=== PATIENT | male | born 1980 | race Caucasian/White ===

== ENCOUNTER 2016-12-23 17:10 | Emergency (ER) | payer OTHER ==
--- NOTE | 2016-12-23 17:23 | EDPHY ---
H & P Stated Complaint: fever/night sweats shakes for 3 weeks Time Seen by Provider: 12/23/16 17:22 HPI/ROS: CHIEF COMPLAINT: Nausea, fever, night sweats HISTORY OF PRESENT ILLNESS: The patient is a diabetic 36 y/o male complaining of nausea, fever, headache, chills, and night sweats for the past 3 weeks. He has not had neck stiffness. 3 weeks ago he had similar symptoms and thought it was the flu, since someone at work had the flu. He has been more lethargic since his symptoms began; his notes that he has been sleeping constantly, waking up drenched in sweat. He was subjectively febrile at 101 several days ago. This was the first time he measured a fever. His also notes that he has intermittently looked jaundiced or a weber/blue color. He is a type 2 diabetic on metformin. His blood glucose levels normally run in the 80's. Denies taking anything for his fever today, he tried Tylenol several days ago with no relief. Denies a flu shot this year, recent travel, cough, shortness of breath, chest pain, sore throat, vomiting, diarrhea, or abdominal pain. He is in the and believes that he has had a meningitis vaccine. REVIEW OF SYSTEMS: A ten point review of systems was performed and is negative with the exception of the items mentioned in the HPI. Past medical history: Type 2 diabetes Past surgical history: Labral reconstruction Family history: Noncontributory Social history: , daughter, and son at bedside Lives in [place] Works as a machinist mate for the [employer] General Appearance: Alert. Vital signs reviewed. Eyes: Pupils equal and round, no conjunctival injection, no discharge. Anicteric. ENT, Mouth: Mucous membranes are moist, no oropharyngeal erythema or edema. Neck: No lymphadenopathy, supple. No meningeal signs. Respiratory: Lungs are clear to auscultation; no wheezes, rales, or rhonchi. Cardiovascular: Regular rate and rhythm; no murmur, rub, or gallop. Gastrointestinal: Abdomen is soft and nontender, no masses or organomegaly, bowel sounds normal. Skin: Warm and dry. Left posterior lateral thigh rash, slightly raised, erythematous, dry. Back: Nontender to palpation over the thoracolumbar spine. No CVAT. Extremities: No lower extremity edema, no calf tenderness or swelling. Neurological: Alert and oriented. Moving all four extremities easily and equally. Psychiatric: Normal affect. - Personal History Current Tetanus/Diphtheria Vaccine: Yes - Medical/Surgical History Hx Asthma: No Hx Chronic Respiratory Disease: No Hx Diabetes: No Hx Cardiac Disease: No Hx Renal Disease: No Hx Cirrhosis: No Hx Alcoholism: No Hx HIV/AIDS: No Hx Splenectomy or Spleen Trauma: No Other PMH: denies - Social History Smoking Status: Never smoked Constitutional: Initial Vital Signs Temperature (C) 37.5 C 12/23/16 17:18 Heart Rate 83 12/23/16 17:18 Respiratory Rate 20 12/23/16 17:18 Blood Pressure 103/63 12/23/16 17:18 O2 Sat (%) 97 12/23/16 17:18 O2 Delivery Mode Room Air Allergies/Adverse Reactions: BANDAIDS Allergy (Uncoded 12/23/16 17:17) CHLORAPREP Allergy (Uncoded 12/23/16 17:17) HAYFEVER Allergy (Uncoded 12/23/16 17:17) Home Medications: Medication Instructions Recorded NO HOME MEDS 03/08/10 Metformin HCl 12/23/16 Medical Decision Making ED Course/Re-evaluation: The patient is a diabetic 36 y/o male complaining of fever, headache, and night sweats for the past 3 weeks. On exam he has a left posterior lateral thigh rash that is slightly raised, erythematous, and dry. This is not new. Patients laboratory results, CBC and chemistries, are normal. Influenza test is negative. 1839: Reassessed patient and discussed laboratory findings. Etiology of her symptoms is unclear at this point. He does not have influenza but has symptoms suggestive of a viral syndrome. The chronicity of this illness is concerning. He has been able to work for the past few weeks but began feeling worse 2-3 days ago. There is nothing to suggest hyperglycemia or ketoacidosis. I do not think that he has a meningitis although we discussed the possibility of a viral meningitis. We also discussed a lumbar puncture. He has a normal neurologic exam and no meningeal signs. He is not febrile here. I do not recommend lumbar puncture at this time. He has not had any exotic travel. No recent bites. Return precautions provided; patient is comfortable with this plan. Differential Diagnosis: Fever in adults including but not limited to pneumonia, urinary tract infection , viral syndrome, and influenza. - Data Points Laboratory Results: Laboratory Results 12/23/16 17:30 12/23/16 17:30 12/23/16 12/23/16 12/23/16 17:50 17:30 17:30 WBC 10.25 10^3/uL H 10^3/uL (3.80-9.50) RBC 4.71 10^6/uL 10^6/uL (4.40-6.38) Hgb 14.7 g/dL g/dL (13.7-17.5) Hct 42.5 % % (40.0-51.0) MCV 90.2 fL fL (81.5-99.8) MCH 31.2 pg pg (27.9-34.1) MCHC 34.6 g/dL g/dL (32.4-36.7) RDW 13.9 % % (11.5-15.2) Plt Count 327 10^3/uL 10^3/uL (150-400) MPV 9.3 fL fL (8.7-11.7) Neut % (Auto) 70.5 % % (39.3-74.2) Lymph % (Auto) 18.0 % % (15.0-45.0) [place] % (Auto) 9.4 % % (4.5-13.0) Eos % (Auto) 0.8 % % (0.6-7.6) Baso % (Auto) 0.7 % % (0.3-1.7) Nucleat RBC Rel Count 0.0 % % (0.0-0.2) Absolute Neuts (auto) 7.24 10^3/uL H 10^3/uL (1.70-6.50) Absolute Lymphs (auto) 1.84 10^3/uL 10^3/uL (1.00-3.00) Absolute Monos (auto) 0.96 10^3/uL H 10^3/uL (0.30-0.80) Absolute Eos (auto) 0.08 10^3/uL 10^3/uL (0.03-0.40) Absolute Basos (auto) 0.07 10^3/uL 10^3/uL (0.02-0.10) Absolute Nucleated RBC 0.00 10^3/uL 10^3/uL (0-0.01) Immature Gran % 0.6 % % (0.0-1.1) Immature Gran # 0.06 10^3/uL 10^3/uL (0.00-0.10) Sodium 138 mEq/L mEq/L (134-144) Potassium 4.3 mEq/L mEq/L (3.5-5.2) Chloride 100 mEq/L mEq/L (97-110) Carbon Dioxide 25 mEq/l mEq/l (22-31) Anion Gap 13 mEq/L mEq/L (8-16) BUN 14 mg/dL mg/dL (7-23) Creatinine 1.0 mg/dL mg/dL (0.7-1.3) Estimated GFR > 60 Glucose 80 mg/dL mg/dL (70-100) Calcium 9.6 mg/dL mg/dL (8.5-10.4) Nasal Influenza A PCR NEGATIVE FOR FLU A (NEGATIVE) Nasal Influenza B PCR NEGATIVE FOR FLU B (NEGATIVE) Departure - Departure Disposition: Home, Routine, Self-Care Clinical Impression: Viral syndrome Condition: Good Instructions: Viral Syndrome (ED) Additional Instructions: Adult Pain & Fever Control: We recommend Acetaminophen (Tylenol) and Ibuprofen (Motrin,Advil) for pain and fever control. When fever is high or pain severe, both drugs can be used at the same time, but at different intervals. Please note the time differences. Your dose is: Acetaminophen [650]mg every 4 to 6 hours Ibuprofen [400]mg every [4-6] hours with food Note: No more than 3000mg of Acetaminophen should be taken in 24 hours (for an adult). Use ibuprofen and Tylenol as needed for fever and body aches. Follow up with your primary care physician within 72 hours for reevaluation. Drink plenty of fluids. Return to the emergency department immediately for high fever, severe headache or neck pain, difficulty breathing, abdominal pain, or other worsening of condition. Referrals: Kayode Ballard MD [Primary Care Provider] - As per Instructions Report Scribed for: Shanna Arzate Report Scribed by: Raquel Michaud Date of Report: 12/23/16 Time of Report: 17:29 Physician Review and Approval Statement: 12/23/16 17:23 Portions of this note were transcribed by the medical i d sales. I, Dr. Shanna Arzate, personally performed the history, physical exam, and medical decision- making; and confirmed the accuracy of the information in the transcribed note.
[2016-12-23 17:55] LABS: % IMMATURE GRANULYOCYTES 0.6 % (0.0-1.1); ABSOLUTE IMMATURE GRANULOCYTES 0.06 10^3/uL (0.00-0.10); ADD DIFF? NO; ADD MORPH? NO; ADD SCAN? NO; ATYPICAL LYMPHOCYTE FLAG 0 (0-99); FRAGMENT RBC FLAG 0 (0-99); HEMATOCRIT 42.5 % (40.0-51.0); HEMOGLOBIN 14.7 g/dL (13.7-17.5); LEFT SHIFT FLG 0 (0-99); LIPEMIA HEMOLYSIS FLAG 90 (0-99); MEAN CELL HEMOGLOBIN 31.2 pg (27.9-34.1); MEAN CELL HEMOGLOBIN CONCENTR. 34.6 g/dL (32.4-36.7); MEAN CELL VOLUME 90.2 fL (81.5-99.8); MEAN PLATELET VOLUME 9.3 fL (8.7-11.7); PLATELET CLUMPS FLAG 0 (0-99); PLATELET COUNT 327 10^3/uL (150-400); RED BLOOD CELL COUNT 4.71 10^6/uL (4.40-6.38); RED CELL DISTRIBUTION WIDTH 13.9 % (11.5-15.2)
[2016-12-23 18:01] LABS: ANION GAP 13 mEq/L (8-16); CALCIUM 9.6 mg/dL (8.5-10.4); CARBON DIOXIDE 25 mEq/l (22-31); CHLORIDE 100 mEq/L (97-110); GLOMERULAR FILTRATION RATE > 60; GLUCOSE 80 mg/dL (70-100); POTASSIUM 4.3 mEq/L (3.5-5.2); SODIUM 138 mEq/L (134-144)
[2016-12-23] MEDS ORDERED: ACETAMINOPHEN 500 MG TAB PO ONE (19:25)
[2016-12-23 19:32] VITALS: BP 111/75; PULSE 88; RESP 18; TEMP 101.7; O2SAT 96
== END 2016-12-23 19:36 | disposition home or self-care (01) ==
DX: B34.9 Viral infection, unspecified (principal); E11.9 Type 2 diabetes mellitus without complications; Z79.84 Long term (current) use of oral hypoglycemic drugs

== ENCOUNTER 2017-02-04 17:20 | Emergency (ER) | payer OTHER ==
[2017-02-04 17:34] VITALS: O2SAT 97
--- NOTE | 2017-02-04 19:40 | EDPHY ---
HPI/HX/ROS/PE/MDM Narrative: CHIEF COMPLAINT: Left-sided back pain HPI: This patient is a 36 year old male with history of type II diabetes and kidney stones complaining of lower back and left hip pain onset yesterday afternoon. He denies any recent trauma. He describes the pain as a burning sensation. He was unable to sleep well last night, and has difficulty finding a comfortable position. His pain was initially left-sided, but is now radiating towards the right. He endorses some urinary urgency. He denies fever, hematuria, vomiting, or other associated symptoms. REVIEW OF SYSTEMS: Aside from elements discussed in the HPI, a comprehensive 10-point review of systems was reviewed and is negative. PMH: Type II diabetes (Metformin BID). Kidney stones. SOCIAL HISTORY: . Lives in [place]. Employed. PHYSICAL EXAM: General:Patient is alert, in no acute distress. ENT:Eyes are normal to inspection. ENT inspection normal. Neck: Normal inspection. Full range of motion. Respiratory:No respiratory distress. Breath sounds normal bilaterally. Cardiovascular: Regular rate and rhythm. Strong peripheral pulses. Normal cap refill. Abdomen:The abdomen is nontender to palpation. There are no peritoneal signs. There are normal bowel sounds. Back: Normal to inspection. No tenderness to palpation. Skin: Normal color. No rash. Warm and dry. Extremities: Normal appearance. Full range of motion. Neuro: Oriented x3. Normal motor function. Normal sensory function. ED Course: 36 y/o male with history of kidney stones presents with left-sided burning pain in his lower back and hip area. Plan for CT abdomen/pelvis to rule out kidney stone. Plan to administer 30mg IV Toradol for pain relief. Reviewed laboratory studies. UA positive for UTI. Labs otherwise unremarkable. 20:[address] Gill, radiologist. CT shows multiple kidney stones, none obstructing. 20:32 Reassessed patent. Discussed lab and CT results. Plan to discharge home in good condition with prescription for Keflex. Plan to administer first dose here in the emergency department. Follow up and return precautions discussed. The patient is comfortable with this plan. Administered 500mg PO Keflex. MDM: This patient presents with flank pain and some abnormal urinary symptoms. His CT is negative for active stone or lumbar pathology. His UA suggests UTI which would represent a recurrent infection for him. I discussed the fact that it is unusual for healthy males to develop UTIS. His states she believes it is because the patient eats undercooked chicken. I strongly recommended they follow-up with a urologist JEFERSON for further workup. I will treat with Keflex. - Data Points Imaging Results: Imaging Impressions Abdomen/Pelvis CT 02/04/17 19:41 Impression: 1. 3 new nonobstructive left upper pole nephroliths. May be associated with an enlarged peripelvic cyst vs infundibular stenosis. A CT urogram would be definitive. 2. Possible constipation. 3. Unremarkable lumbar spine. Results discussed with Dr. Hernandez at 8:23 PM. Attention: This CT examination is specifically designed to evaluate patients who are clinically suspected of having acute obstructive uropathy. This examination does not use radiographic contrast, and as such, provides only a limited evaluation of the abdomen, pelvis and retroperitoneum. If there is further clinical suspicion for pathological conditions other than obstructive uropathy, a complete CT evaluation of the abdomen and pelvis utilizing intravenous, oral, and rectal contrast should be considered. General information for patients regarding this examination can be found at [email or web address]. If you have questions or comments about this report, please contact me at [phone] (hospital) or [phone] (cell). Imaging: Discussed imaging studies w/ inbound call center representative Radiologist Laboratory Results: Laboratory Results 02/04/17 19:55 02/04/17 19:55 02/04/17 02/04/17 02/04/17 19:55 19:55 18:30 WBC 8.36 10^3/uL 10^3/uL (3.80-9.50) RBC 4.65 10^6/uL 10^6/uL (4.40-6.38) Hgb 14.3 g/dL g/dL (13.7-17.5) Hct 41.6 % % (40.0-51.0) MCV 89.5 fL fL (81.5-99.8) MCH 30.8 pg pg (27.9-34.1) MCHC 34.4 g/dL g/dL (32.4-36.7) RDW 13.9 % % (11.5-15.2) Plt Count 256 10^3/uL 10^3/uL (150-400) MPV 9.9 fL fL (8.7-11.7) Neut % (Auto) 69.1 % % (39.3-74.2) Lymph % (Auto) 20.2 % % (15.0-45.0) [place] % (Auto) 8.7 % % (4.5-13.0) Eos % (Auto) 1.0 % % (0.6-7.6) Baso % (Auto) 0.6 % % (0.3-1.7) Nucleat RBC Rel Count 0.0 % % (0.0-0.2) Absolute Neuts (auto) 5.78 10^3/uL 10^3/uL (1.70-6.50) Absolute Lymphs (auto) 1.69 10^3/uL 10^3/uL (1.00-3.00) Absolute Monos (auto) 0.73 10^3/uL 10^3/uL (0.30-0.80) Absolute Eos (auto) 0.08 10^3/uL 10^3/uL (0.03-0.40) Absolute Basos (auto) 0.05 10^3/uL 10^3/uL (0.02-0.10) Absolute Nucleated RBC 0.00 10^3/uL 10^3/uL (0-0.01) Immature Gran % 0.4 % % (0.0-1.1) Immature Gran # 0.03 10^3/uL 10^3/uL (0.00-0.10) Sodium 137 mEq/L mEq/L (134-144) Potassium 4.0 mEq/L mEq/L (3.5-5.2) Chloride 103 mEq/L mEq/L (97-110) Carbon Dioxide 22 mEq/l mEq/l (22-31) Anion Gap 12 mEq/L mEq/L (8-16) BUN 13 mg/dL mg/dL (7-23) Creatinine 0.9 mg/dL mg/dL (0.7-1.3) Estimated GFR > 60 Glucose 101 mg/dL H mg/dL (70-100) Calcium 9.6 mg/dL mg/dL (8.5-10.4) Urine Color YELLOW Urine Appearance CLEAR Urine pH 7.0 (5.0-7.5) Ur Specific [place] 1.011 (1.002-1.030) Urine Protein NEGATIVE (NEGATIVE) Urine Ketones NEGATIVE (NEGATIVE) Urine Blood NEGATIVE (NEGATIVE) Urine Nitrate NEGATIVE (NEGATIVE) Urine Bilirubin NEGATIVE (NEGATIVE) Urine Urobilinogen NEGATIVE EU EU (0.2-1.0) Ur Leukocyte Esterase TRACE H (NEGATIVE) Urine RBC 3-5 /hpf H /hpf (0-3) Urine WBC 5-10 /hpf H /hpf (0-3) Ur Epithelial Cells TRACE /lpf /lpf (NONE-1+) Urine Bacteria 4+ /hpf H /hpf (NONE SEEN) Urine Glucose NEGATIVE (NEGATIVE) Medications Given: Discontinued Medications Sodium Chloride (Ns) 1,000 mls @ 0 mls/hr IV EDNOW ONE; Wide Open PRN Reason: Protocol Stop: 02/04/17 19:42 Last Admin: 02/04/17 19:59 Dose: 1,000 mls Ketorolac Tromethamine (Toradol) 30 mg IVP EDNOW ONE Stop: 02/04/17 19:42 Last Admin: 02/04/17 19:59 Dose: 30 mg General Time Seen by Provider: 02/04/17 19:15 Initial Vital Signs: Initial Vital Signs Temperature (C) 37.6 C 02/04/17 17:31 Heart Rate 101 H 02/04/17 17:31 Respiratory Rate 16 02/04/17 17:31 Blood Pressure 114/71 02/04/17 17:31 O2 Sat (%) 97 02/04/17 17:31 O2 Delivery Mode Room Air Allergies/Adverse Reactions: BANDAIDS Allergy (Uncoded 12/23/16 17:17) CHLORAPREP Allergy (Uncoded 12/23/16 17:17) HAYFEVER Allergy (Uncoded 12/23/16 17:17) Home Medications: Medication Instructions Recorded Metformin HCl 12/23/16 Cephalexin [Keflex] 500 mg PO TID #21 cap 02/04/17 Departure - Departure Disposition: Home, Routine, Self-Care Clinical Impression: UTI (urinary tract infection) Condition: Good Instructions: Cephalexin (By mouth), Urinary Tract Infection in Men (ED) Additional Instructions: Take Keflex as prescribed. It is important to finish your entire course of antibiotics even if you are feeling better. Follow-up with your primary doctor in 2-3 days. Follow up with urology this week. We have provided a referral to our urologist metal control worker. Return to the Emergency Department for fever, worsening pain, flank pain or failure to improve within 72 hours. It is possible that the bacteria causing your infection is resistant to the antibiotic we've placed you on. We have sent a urine for culture, if this comes back with a resistant bacteria, we will call you at the number you provided to us. Referrals: Kayode Ballard MD [Primary Care Provider] - As per Instructions Herbert Redmond MD [Medical Doctor] - As per Instructions Prescriptions: Cephalexin [Keflex] 500 mg PO TID #21 cap Report Scribed for: Memo Hernandez Report Scribed by: Lizette George Date of Report: 02/04/17 Time of Report: 19:41 Physician Review and Approval Statement: Portions of this note were transcribed by an ED scribe. I personally performed the history, physical exam, and medical decision making; and confirm the accuracy of the information in the transcribed note.
[2017-02-04] MEDS ORDERED: NS 1,000 ML IV ONE (19:41)
[2017-02-04] MEDS ORDERED: KETOROLAC 30 MG/1 ML SDV IVP ONE (19:41)
[2017-02-04 19:58] LABS: COLOR YELLOW; LEUKOCYTE ESTERASE,URINE TRACE (NEGATIVE); NITRITE,URINE NEGATIVE (NEGATIVE)
[2017-02-04 20:16] LABS: BACTERIA 4+ /hpf (NONE SEEN)
[2017-02-04 20:21] LABS: % IMMATURE GRANULYOCYTES 0.4 % (0.0-1.1); ABSOLUTE IMMATURE GRANULOCYTES 0.03 10^3/uL (0.00-0.10); ADD DIFF? NO; ADD MORPH? NO; ADD SCAN? NO; ATYPICAL LYMPHOCYTE FLAG 10 (0-99); FRAGMENT RBC FLAG 0 (0-99); HEMATOCRIT 41.6 % (40.0-51.0); HEMOGLOBIN 14.3 g/dL (13.7-17.5); LEFT SHIFT FLG 0 (0-99); LIPEMIA HEMOLYSIS FLAG 90 (0-99); MEAN CELL HEMOGLOBIN 30.8 pg (27.9-34.1); MEAN CELL HEMOGLOBIN CONCENTR. 34.4 g/dL (32.4-36.7); MEAN CELL VOLUME 89.5 fL (81.5-99.8); MEAN PLATELET VOLUME 9.9 fL (8.7-11.7); PLATELET CLUMPS FLAG 0 (0-99); PLATELET COUNT 256 10^3/uL (150-400); RED BLOOD CELL COUNT 4.65 10^6/uL (4.40-6.38); RED CELL DISTRIBUTION WIDTH 13.9 % (11.5-15.2)
[2017-02-04 20:26] VITALS: BP 111/73; PULSE 87; RESP 18
[2017-02-04 20:30] LABS: ANION GAP 12 mEq/L (8-16); CALCIUM 9.6 mg/dL (8.5-10.4); CARBON DIOXIDE 22 mEq/l (22-31); CHLORIDE 103 mEq/L (97-110); CREATININE 0.9 mg/dL (0.7-1.3); GLOMERULAR FILTRATION RATE > 60; GLUCOSE 101 mg/dL (70-100); SODIUM 137 mEq/L (134-144)
[2017-02-04] MEDS ORDERED: CEPHALEXIN 500 MG CAP PO ONE (20:39)
[2017-02-04] MEDS ORDERED: CEPHALEXIN 250MG/5ML PREPACK BTL TAKEHOME ONE (20:51)
[2017-02-04 20:56] VITALS: TEMP 98.6
[2017-02-04] MEDS ORDERED: CEPHALEXIN 500MG PREPACK#4 BTL TAKEHOME ONE (20:56)
== END 2017-02-04 20:59 | disposition home or self-care (01) ==
DX: N39.0 Urinary tract infection, site not specified (principal); E11.9 Type 2 diabetes mellitus without complications; B96.89 Other specified bacterial agents as the cause of diseases classified elsewhere; Z79.84 Long term (current) use of oral hypoglycemic drugs
CPT/HCPCS: 96374; J1885

== ENCOUNTER 2018-02-15 17:06 | Emergency (ER) | payer OTHER ==
[2018-02-15 17:12] VITALS: BP 107/76
[2018-02-15] MEDS ORDERED: OXYCODONE/APAP 5/325 TAB PO ONE (17:34)
[2018-02-15] MEDS ORDERED: DEXAMETHASONE 4 MG TAB PO ONE (17:35)
--- NOTE | 2018-02-15 17:39 | EDPHY ---
H & P Stated Complaint: BACK PAIN/WORSE POST WORKING OUT TODAY Time Seen by Provider: 02/15/18 17:26 HPI/ROS: CHIEF COMPLAINT: Low back pain HISTORY OF PRESENT ILLNESS: The patient is a 37-year-old man who states that he has chronic mild low back pain but today decided to lift weights and was doing bent over dimple. He had significant pain after doing this. His gave him a dose of her old Flexeril. He slept for few hours but states that did not make him feel better. No bowel or bladder abnormalities. No fevers. No trauma. No paresthesias numbness or weakness. He is able to walk but has pain. He went to a chiropractor a week ago who told him that his symptoms are very minimal and did not need to return. Severity: Severe Modifying factors: None REVIEW OF SYSTEMS: Constitutional: denies: chills, fever, recent illness, recent injury EENTM: denies: blurred vision, double vision, nose congestion Respiratory: denies: cough, shortness of breath Cardiac: denies: chest pain, irregular heart rate, lightheadedness, palpitations Gastrointestinal/Abdominal: denies: abdominal pain, diarrhea, nausea, vomiting, blood streaked stools Genitourinary: denies: dysuria, frequency, hematuria, pain Musculoskeletal: denies: joint pain, muscle pain Skin: denies: lesions, rash, jaundice, bruising Neurological: denies: headache, numbness, paresthesia, tingling, dizziness, weakness Hematologic/Lymphatic: denies: blood clots, easy bleeding, easy bruising Immunologic/allergic: denies: HIV/AIDS, transplant 10 systems reviewed and negative except as noted EXAM: GENERAL: Well-appearing, well-nourished and in no acute distress. HEAD: Atraumatic, normocephalic. EYES: Pupils equal round and reactive to light, extraocular movements intact, sclera anicteric, conjunctiva are normal. ENT: TMs normal, nares patent, oropharynx clear without exudates. Moist mucous membranes. NECK: Normal range of motion, supple without lymphadenopathy or JVD. LUNGS: Breath sounds clear to auscultation bilaterally and equal. No wheezes rales or rhonchi. HEART: Regular rate and rhythm without murmurs, rubs or gallops. ABDOMEN: Soft, nontender, normoactive bowel sounds. No guarding, no rebound. No masses appreciated. BACK: No CVA tenderness, no spinal tenderness, step-offs or deformities EXTREMITIES: Normal range of motion, no pitting or edema. No clubbing or cyanosis. NEUROLOGICAL: Cranial nerves II through XII grossly intact. Normal speech, normal gait. 5/5 strength, normal movement in all extremities, normal sensation , normal reflexes. able to stand on toes and on each foot individually. PSYCH: Normal mood, normal affect. SKIN: Warm, dry, normal turgor, no visible rashes or lesions. Source: Patient Exam Limitations: No limitations - Personal History Current Tetanus Diphtheria and Acellular Pertussis (TDAP): Yes - Medical/Surgical History Hx Asthma: No Hx Chronic Respiratory Disease: No Hx Diabetes: Yes Hx Cardiac Disease: No Hx Renal Disease: No Hx Cirrhosis: No Hx Alcoholism: No Hx HIV/AIDS: No Hx Splenectomy or Spleen Trauma: No Other PMH: denies - Family History Significant Family History: No pertinent family hx - Social History Smoking Status: Never smoked Alcohol Use: Sober Drug Use: None Constitutional: Initial Vital Signs Temperature (C) 36.4 C 02/15/18 17:10 Heart Rate 80 02/15/18 17:10 Respiratory Rate 18 02/15/18 17:10 Blood Pressure 107/76 02/15/18 17:10 O2 Sat (%) 96 02/15/18 17:10 O2 Delivery Mode Room Air Allergies/Adverse Reactions: BANDAIDS Allergy (Uncoded 02/15/18 17:09) CHLORAPREP Allergy (Uncoded 02/15/18 17:09) HAYFEVER Allergy (Uncoded 02/15/18 17:09) Home Medications: Medication Instructions Recorded Metformin HCl 12/23/16 Aleve 02/15/18 Flexeril 10 MG (*) 02/15/18 oxyCODONE/APAP 5/325 [Percocet 1 - 2 tab PO Q6H PRN #10 tab 02/15/18 5/325 (*)] Medical Decision Making - Diagnostics Imaging Results: Imaging Impressions Lumbar Spine X-Ray 02/15/18 17:34 Impression: 1. No acute findings in the lumbar spine. 2. Grossly stable left nephrolithiasis. Imaging: Discussed imaging studies w/ call center consultant Radiologist ED Course/Re-evaluation: We discussed the patient's x-ray which is reassuring. He is aware of the kidney stones previously. No hematuria. He does not think that this is a kidney stone. He has received Decadron and Percocet. We discussed follow-up as well as indications for returning if his symptoms worsen. No signs of cauda equina at this time. No signs of infection at this time. Differential Diagnosis: Partial list of the Differential diagnosis considered include but were not limited to; low back pain, muscle strain, radiculopathy and although unlikely based on the history and physical exam, I also considered fracture, infection, spinal compression. I discussed these differential diagnoses and the plan with the patient as well as the usual and expected course. The patient understands that the diagnosis is provisional and that in medicine we are not always correct and that further workup is often warranted. Usual and customary warnings were given. All of the patient's questions were answered. The patient was instructed to return to the emergency department should the symptoms at all worsen or return, otherwise to followup with the physician as we discussed. - Data Points Medications Given: Discontinued Medications Dexamethasone (Decadron) 10 mg PO EDNOW ONE Stop: 02/15/18 17:36 Last Admin: 02/15/18 18:11 Dose: 10 mg Oxycodone/Acetaminophen (Percocet 5/325) 2 tab PO EDNOW ONE Stop: 02/15/18 17:35 Last Admin: 02/15/18 18:10 Dose: 2 tab Departure - Departure Disposition: Home, Routine, Self-Care Clinical Impression: Low back pain Qualifiers: Chronicity: acute Back pain laterality: midline Sciatica presence: without sciatica Qualified Code(s): M54.5 - Low back pain Condition: Fair Instructions: Acute Low Back Pain (ED) Referrals: Kayode Ballard MD [Primary Care Provider] - 2-3 days, if not improved Prescriptions: oxyCODONE/APAP 5/325 [Percocet 5/325 (*)] 1 - 2 tab PO Q6H PRN #10 tab PRN Reason: Pain, Severe
== END 2018-02-15 18:00 | disposition home or self-care (01) ==
DX: M54.5 Low back pain (principal); X50.9XXA Other and unspecified overexertion or strenuous movements or postures, initial encounter; Y93.B3 Activity, free weights